=== PATIENT | male | born 1975 | race Caucasian/White ===

== ENCOUNTER 2018-12-17 16:34 | Emergency (ER) | payer BC ==
[~2018-12-17] VITALS: Ht 165.1 cm; Wt 80.0 kg
[2018-12-17 16:36] VITALS: Ht 165.1 cm; Wt 80.0 kg
[2018-12-17] MEDS ORDERED: SOD CHLORIDE 0.9% 1,000 ML IV STA (16:39)
[2018-12-17] MEDS ORDERED: KETOROLAC 30 MG INJ IV STA (16:39)
[2018-12-17] MEDS ORDERED: HYDROmorphONE 1 MG/ML SYG IV STA (16:39)
[2018-12-17] MEDS ORDERED: ONDANSETRON 4 MG INJ IV STA (16:39)
[2018-12-17] MEDS ORDERED: TAMS-14 PO (18:14)
[2018-12-17] MEDS ORDERED: IBUP-1542 PO (18:14)
[2018-12-17] MEDS ORDERED: HYDR-3980 PO (18:14)
[2018-12-17 19:27] VITALS: BP 122/77; PULSE 60; RESP 16
--- NOTE | 2018-12-17 19:30 | CONS ---
Assessment/Plan Assessment/Plan Hospital Course (Demo Recall) 43-year-old male presented to the emergency room with severe left flank pain associated with nausea. He underwent a CT scan of the abdomen and pelvis and that showed a 9 mm stone in the left upper ureter. The patient was given pain medications in the emergency room and at the present time he is appearing fairly comfortable and has no pain. He states that about 2 months ago he did have pain and that lasted about 10 minutes and then subsided. No prior history of kidney stones. On the exam at the present he has no tenderness over the flank area. I did review the CT scan with him and explained to him that he is not going to pass the stone without having pain and that the stone is 9 mm and the chances of passing the stone is small. Usually a stone of 5 mm or less have a better chance of passing it but one could always a pass a stone if he is to wait long enough and he the stone does not block the kidney to force as to remove it. I explained to him that he should go and see his medical doctor tomorrow and have him refer him to a urologist contracted with his medical group. Should he have severe pain where the oral pain medications do not control it he should go back to the emergency room. He will be given copies of his CT scan on a CD as well as the report and his lab results. Consultation Date/Type/Reason Admit Date/Time Date of Consultation: Dec 17, 2018 Type of Consult Urology Reason for Consultation Left upper ureteral stone Requesting Provider: MARCY SALCIDO MD Date/Time of Note DATE: 12/17/18 TIME: 19:22 Hx of Present Illness 43-year-old male presented to the emergency room with severe left flank pain associated with nausea. He underwent a CT scan of the abdomen and pelvis and that showed a 9 mm stone in the left upper ureter. The patient was given pain medications in the emergency room and at the present time he is appearing fairly comfortable and has no pain. He states that about 2 months ago he did have pain and that lasted about 10 minutes and then subsided. No prior history of kidney stones. Constitutional: no complaints Eyes: no complaints ENT: no complaints Respiratory: no complaints; No wheezing Cardiovascular: no complaints Gastrointestinal: no complaints, vomiting Genitourinary: flank pain (Left side) Musculoskeletal: no complaints Skin: no complaints Neurologic: no complaints Endocrine: no complaints Lymphatic: no complaints Psychological: no complaints Immunologic: no complaints Past Medical History Medical History: no pertinent history Home Meds Active Scripts Tamsulosin Hcl* (Flomax*) 0.4 Mg Cap.er.24h, 0.4 MG PO QPM, #30 CAP Prov:MARCY SALCIDO MD 12/17/18 Ibuprofen* (Motrin*) 600 Mg Tab, 600 MG PO Q6H PRN for PAIN AND OR ELEVATED T EMP, #30 TAB Prov:MARCY SALCIDO MD 12/17/18 Hydrocodone/Acetaminophen ([place] 10-325 Tablet) 1 Each Tablet, 1 TAB PO Q6H PRN for PAIN, #7 TAB Prov:MARCY SALCIDO MD 12/17/18 Allergies: Coded Allergies: No Known Allergy (Unverified , 12/17/18) Past Surgical History Past Surgical Hx: no surgical history Social History Alcohol Use: occasionally Smoking Status: Never smoker Drug Use: none Exam/Review of Systems Exam Vitals Vital Signs Date Temp Pulse Resp B/P (MAP) Pulse Ox O2 O2 Flow FiO2 Time Delivery Rate 12/17/18 98.0 56 18 142/80 99 Room Air 17:37 (100) Constitutional: alert Psych: no complaints Head: normocephalic Eyes: nl conjunctiva ENMT: nl external ears & nose Neck: supple, non-tender Respiratory: normal air movement; No wheezing Cardiovascular: No jugular venous distention (JVD) Gastrointestinal: soft Genitourinary - Male: nl penis, CVA tenderness (Left side), other (Right testis in inguinal area) Musculoskeletal: nl extremities to inspection Extremities: No calf tenderness Neurological: nl mental status Skin: nl turgor Results Result Diagram: 12/17/18 1654 12/17/18 1654 Results 24hrs Laboratory Tests Test 12/17/18 16:54 White Blood Count 8.3 Red Blood Count 5.44 Hemoglobin 15.4 Hematocrit 45.0 Mean Corpuscular Volume 82.7 Mean Corpuscular Hemoglobin 28.3 L Mean Corpuscular Hemoglobin Concent 34.2 Red Cell Distribution Width 12.1 Platelet Count 204 Mean Platelet Volume 11.7 H Immature Granulocytes % 1.600 H Neutrophils % 73.1 Lymphocytes % 17.5 Monocytes % 5.3 Eosinophils % 1.4 Basophils % 1.1 Nucleated Red Blood Cells % 0.0 Immature Granulocytes # 0.130 H Neutrophils # 6.1 Lymphocytes # 1.5 Monocytes # 0.4 Eosinophils # 0.1 Basophils # 0.1 Nucleated Red Blood Cells # 0.0 Urine Color YELLOW Urine Clarity CLEAR Urine pH 5.0 Urine Specific [place] 1.017 Urine Ketones NEGATIVE Urine Nitrite NEGATIVE Urine Bilirubin NEGATIVE Urine Urobilinogen NEGATIVE Urine Leukocyte Esterase NEGATIVE Urine Microscopic RBC 2 Urine Microscopic WBC 3 Urine Mucus FEW A Urine Hemoglobin 1+ H Urine Glucose NEGATIVE Urine Total Protein NEGATIVE Sodium Level 143 Potassium Level 4.2 Chloride Level 107 Carbon Dioxide Level 24 Anion Gap 12 Blood Urea Nitrogen 18 Creatinine 1.20 Est Glomerular Filtrat Rate mL/min > 60 Glucose Level 139 Calcium Level 10.5 H Total Bilirubin 0.6 Direct Bilirubin 0.00 Indirect Bilirubin 0.6 Aspartate Amino Transf (AST/SGOT) 37 Alanine Aminotransferase (ALT/SGPT) 47 Alkaline Phosphatase 70 Total Protein 8.3 H Albumin 4.7 Globulin 3.60 H Albumin/Globulin Ratio 1.30 [address] scan of the abdomen and pelvis: Mild left hydronephrosis with 9 mm calculus proximal left ureter. Fatty liver. Undescended right testicle. NOMI MCMAHAN MD Dec 17, 2018 19:30
--- NOTE | 2018-12-17 19:39 | ERD ---
ER Documentation Chief Complaint Chief Complaint left flank pain onset this am at 1100 HPI Patient is a 43-year-old male with no medical problems who presents with abdominal pain and flank pain. He said that he woke up this morning at 11 AM with sharp left-sided upper abdominal pain and flank pain. He has no history of kidney stone in the past. He has vomiting. He has had no treatment as of yet. The pain comes and goes. The patient has no fevers. Upon review of old medical records this is the patient's first visit to the emergency department. The patient does not remember the name of his primary doctor. ROS All systems reviewed and are negative except as per history of present illness. Medications Home Meds Active Scripts Tamsulosin Hcl* (Flomax*) 0.4 Mg Cap.er.24h, 0.4 MG PO QPM, #30 CAP Prov:MARCY SALCIDO MD 12/17/18 Ibuprofen* (Motrin*) 600 Mg Tab, 600 MG PO Q6H PRN for PAIN AND OR ELEVATED TEMP, #30 TAB Prov:MARCY SALCIDO MD 12/17/18 Hydrocodone/Acetaminophen ([place] 10-325 Tablet) 1 Each Tablet, 1 TAB PO Q6H PRN for PAIN, #7 TAB Prov:MARCY SALCIDO MD 12/17/18 Allergies Allergies: Coded Allergies: No Known Allergy (Unverified , 12/17/18) PMhx/Soc Medical and Surgical Hx: pt denies Medical Hx, pt denies Surgical Hx Hx Alcohol Use: No Hx Substance Use: No Hx Tobacco Use: No Smoking Status: Never smoker FmHx Family History: diabetes Physical Exam Vitals Vital Signs Date Temp Pulse Resp B/P (MAP) Pulse Ox O2 O2 Flow FiO2 Time Delivery Rate 12/17/18 98.6 60 16 122/77 99 Room Air 19:27 (92) 12/17/18 98.0 56 18 142/80 99 Room Air 17:37 (100) 12/17/18 98.0 58 18 142/91 99 Room Air 16:53 (108) 12/17/18 98.0 64 18 148/76 99 16:36 (100) Physical Exam Const: Moderate distress secondary to pain Head: Atraumatic Eyes: Normal Conjunctiva ENT: Normal External Ears, Nose and Mouth. Neck: Full range of motion. No meningismus. Resp: Clear to auscultation bilaterally Cardio: Regular rate and rhythm, no murmurs Abd: Soft, non tender, non distended. Normal bowel sounds Skin: No petechiae or rashes Back: No midline or flank tenderness Ext: No cyanosis, or edema Neur: Awake and alert Psych: Normal Mood and Affect Result Diagram: 12/17/18 1654 12/17/18 1654 Results 24 hrs Laboratory Tests Test 12/17/18 16:54 White Blood Count 8.3 10^3/ul Red Blood Count 5.44 10^6/ul Hemoglobin 15.4 g/dl Hematocrit 45.0 % Mean Corpuscular Volume 82.7 fl Mean Corpuscular Hemoglobin 28.3 pg Mean Corpuscular Hemoglobin Concent 34.2 g/dl Red Cell Distribution Width 12.1 % Platelet Count 204 10^3/UL Mean Platelet Volume 11.7 fl Immature Granulocytes % 1.600 % Neutrophils % 73.1 % Lymphocytes % 17.5 % Monocytes % 5.3 % Eosinophils % 1.4 % Basophils % 1.1 % Nucleated Red Blood Cells % 0.0 /100WBC Immature Granulocytes # 0.130 10^3/ul Neutrophils # 6.1 10^3/ul Lymphocytes # 1.5 10^3/ul Monocytes # 0.4 10^3/ul Eosinophils # 0.1 10^3/ul Basophils # 0.1 10^3/ul Nucleated Red Blood Cells # 0.0 10^3/ul Urine Color YELLOW Urine Clarity CLEAR Urine pH 5.0 Urine Specific [place] 1.017 Urine Ketones NEGATIVE mg/dL Urine Nitrite NEGATIVE mg/dL Urine Bilirubin NEGATIVE mg/dL Urine Urobilinogen NEGATIVE mg/dL Urine Leukocyte Esterase NEGATIVE Magda/ul Urine Microscopic RBC 2 /HPF Urine Microscopic WBC 3 /HPF Urine Mucus FEW /HPF Urine Hemoglobin 1+ mg/dL Urine Glucose NEGATIVE mg/dL Urine Total Protein NEGATIVE mg/dl Sodium Level 143 mmol/L Potassium Level 4.2 mmol/L Chloride Level 107 mmol/L Carbon Dioxide Level 24 mmol/L Anion Gap 12 Blood Urea Nitrogen 18 mg/dl Creatinine 1.20 mg/dl Est Glomerular Filtrat Rate mL/min > 60 mL/min Glucose Level 139 mg/dl Calcium Level 10.5 mg/dl Total Bilirubin 0.6 mg/dl Direct Bilirubin 0.00 mg/dl Indirect Bilirubin 0.6 mg/dl Aspartate Amino Transf (AST/SGOT) 37 IU/L Alanine Aminotransferase (ALT/SGPT) 47 IU/L Alkaline Phosphatase 70 IU/L Total Protein 8.3 g/dl Albumin 4.7 g/dl Globulin 3.60 g/dl Albumin/Globulin Ratio 1.30 Lipase 66 U/L Current Medications Medications Dose Sig/Seb Start Time Status Last (Trade) Ordered Route PRN Stop Time Admin Dose Reason Admin Sodium 1,000 ml @ Q1H STAT 12/17/18 DC 12/17/18 Chloride 1,000 mls/hr IV 16:39 16:49 12/17/18 17:38 1 mg ONCE STAT 12/17/18 DC 12/17/18 Hydromorphone IV 16:39 16:50 HCl 12/17/18 16:45 (Dilaudid) Ondansetron 4 mg ONCE STAT 12/17/18 DC 12/17/18 HCl (Zofran IV 16:39 16:50 Inj) 12/17/18 16:45 Ketorolac 30 mg ONCE STAT 12/17/18 DC 12/17/18 Tromethamine IV 16:39 16:50 (Toradol) 12/17/18 16:45 Procedures/MDM CT abdomen pelvis shows 9 mm proximal left-sided kidney stone per radiology. Patient is a 43-year-old male who presents with abdominal pain and flank pain. Laboratory studies were normal and urinalysis shows no infection. CT scan does show acute 9 mm kidney stone with hydronephrosis. I spoke with Dr. Dupont who came to the bedside and saw the patient. We feel outpatient management is appropriate this time. The patient will be discharged with a prescription for ibuprofen, Seibert, and Flomax. He will likely need lithotripsy given the size of the stone. The patient can return for any worsening symptoms. Departure Diagnosis: Primary Impression: Kidney stone Additional Impression: Flank pain Condition: Fair Patient Instructions: Kidney Stone W/ Colic Referrals: NOMI DUPONT MD Additional Instructions: SPECIALIST: YOU HAVE A MEDICAL CONDITION WHICH REQUIRES YOU TO SEE A SPECIALIST WITHIN THE NEXT 1-2 DAYS. PLEASE FOLLOW UP WITH YOUR PRIMARY PHYSICIAN FOR REFFERAL.IF YOU DO NOT HAVE A PRIMARY CARE PHYSICIAN AND/OR YOU CAN NOT AFFORD TO SEE A PHYSICIAN THE FOLLOWING RESOURCES HAVE BEEN SUPPLIED TO YOU. IT IS YOUR RESPONSIBILITY TO BE SEEN BY THE SPECIALIST MARCY SALCIDO MD Dec 17, 2018 19:39
== END 2018-12-17 19:28 | disposition home or self-care (01) ==
LOC: E/R 16:34
DX: N20.0 Calculus of kidney (principal)
CPT/HCPCS: 36415; 74176; 80053; 81001; 83690; 85025; 96374; 96375; 99285; J1170; J1885; J2405; J7030

== ENCOUNTER 2018-12-18 08:22 | Observation (INO) | payer BC ==
[~2018-12-18] VITALS: Ht 180.3 cm; Wt 93.3 kg
[~2018-12-18 08:22] MED LIST: HYDR-3980 PO; IBUP-1542 PO; TAMS-14 PO
[2018-12-18 08:27] VITALS: Ht 180.3 cm; Wt 93.3 kg
[2018-12-18] MEDS ORDERED: ONDANSETRON 4 MG INJ IV STA ×2 (08:40→11:40)
[2018-12-18] MEDS ORDERED: HYDROmorphONE 1 MG/ML SYG IV STA ×2 (08:40→11:40)
[2018-12-18] MEDS ORDERED: KETOROLAC 30 MG INJ IV STA (08:40)
[2018-12-18] MEDS ORDERED: SOD CHLORIDE 0.9% 1,000 ML IV STA (08:40)
--- NOTE | 2018-12-18 09:20 | ERD ---
ER Documentation Chief Complaint Chief Complaint LEFT FLANK PAIN, N/V, DX YESTERDAY FOR KIDNEY STONE HPI This is a 43-year-old male with no past medical history the presents to the emergency department complaining of severe left flank pain. The patient been seen and evaluated yesterday [facility] and diagnosed with nephrolithiasis. He had a 9 mm stone in the left proximal ureter. He had been seen and evaluated by the urologist while in the emergency department Dr. Dupont and after treatment with analgesic medication in the emergency department had been discharged for outpatient follow-up. However the patient indicates that he was unable to sleep throughout the night due to the severe pain. He states the pain is 10 out of 10 in intensity. Initially the pain began in the flank region and is now in the left lower quadrant. He states there is no alleviating or exacerbating factors to the pain. He has had no fevers or shaking chills. He denies any hematuria. ROS All systems reviewed and are negative except as per history of present illness. Medications Home Meds Discontinued Scripts Tamsulosin Hcl* (Flomax*) 0.4 Mg Cap.er.24h, 0.4 MG PO QPM, #30 CAP Prov:MARCY SALCIDO MD 12/17/18 Ibuprofen* (Motrin*) 600 Mg Tab, 600 MG PO Q6H PRN for PAIN AND OR ELEVATED TEMP, #30 TAB Prov:AMRCY SALCIDO MD 12/17/18 Hydrocodone/Acetaminophen ([facility] 10-325 Tablet) 1 Each Tablet, 1 TAB PO Q6H PRN for PAIN, #7 TAB Prov:MARCY SALCIDO MD 12/17/18 Allergies Allergies: Coded Allergies: No Known Allergy (Unverified , 12/17/18) PMhx/Soc Medical and Surgical Hx: pt denies Medical Hx, pt denies Surgical Hx Hx Alcohol Use: No Hx Substance Use: No Hx Tobacco Use: No Smoking Status: Never smoker Physical Exam Vitals Vital Signs Date Temp Pulse Resp B/P (MAP) Pulse Ox O2 O2 Flow FiO2 Time Delivery Rate 12/18/18 97.6 77 18 148/86 99 08:27 (106) Physical Exam Constitutional:Well-developed. Well-nourished. Patient appeared to be in a significant amount discomfort secondary to pain HEENT:Normocephalic. Atraumatic.Pupils were equal round reactive to light. Dry mucous membranes. Respiratory: Not using accessory muscles of respiration.Lungs were clear to auscultation bilaterally. No rhonchi. No rales. No wheezing. Cardiovascular: Regular rate regular rhythm.No murmurs. No rubs were appreciated.S1, S2 normal. Distal pulses are palpable 2+ bilaterally. GI: Abdomen was soft. Severe left CVA tenderness and tenderness in the left lower quadrant. Non Distended. No pulsatile abdominal masses or bruits. No rebound. No guarding. Bowel sounds were present and normal. Muscle skeletal: Full range of motion of both the upper and lower extremities bilaterally.Normal muscle tone.No assymetrical calf tenderness or swelling. Skin: Diaphoretic. No petechia, no purpura. No lesions on the palms or the soles of the feet. No maculopapular rash. NEURO: Patient was alert, awake, orientated x3.No facial droop. Gait observed and normal with no ataxia.Speech had regular rate and rhythm. No focal neurological deficits. Result Diagram: 12/18/18 0853 Results 24 hrs Laboratory Tests Test 12/18/18 08:53 White Blood Count 7.1 10^3/ul Red Blood Count 5.20 10^6/ul Hemoglobin 14.9 g/dl Hematocrit 43.5 % Mean Corpuscular Volume 83.7 fl Mean Corpuscular Hemoglobin 28.7 pg Mean Corpuscular Hemoglobin Concent 34.3 g/dl Red Cell Distribution Width 12.3 % Platelet Count 193 10^3/UL Mean Platelet Volume 11.8 fl Immature Granulocytes % 0.800 % Neutrophils % 73.0 % Lymphocytes % 16.3 % Monocytes % 6.5 % Eosinophils % 2.4 % Basophils % 1.0 % Nucleated Red Blood Cells % 0.0 /100WBC Immature Granulocytes # 0.060 10^3/ul Neutrophils # 5.2 10^3/ul Lymphocytes # 1.2 10^3/ul Monocytes # 0.5 10^3/ul Eosinophils # 0.2 10^3/ul Basophils # 0.1 10^3/ul Nucleated Red Blood Cells # 0.0 10^3/ul Current Medications Medications Dose Sig/Seb Start Time Status Last (Trade) Ordered Route PRN Stop Time Admin Dose Reason Admin Sodium 1,000 ml @ Q1H STAT 12/18/18 DC 12/18/18 Chloride 1,000 mls/hr IV 08:40 08:45 12/18/18 09:39 1 mg ONCE STAT 12/18/18 DC 12/18/18 Hydromorphone IV 08:40 08:46 HCl 12/18/18 08:41 (Dilaudid) Ondansetron 4 mg ONCE STAT 12/18/18 DC 12/18/18 HCl (Zofran IV 08:40 08:45 Inj) 12/18/18 08:41 Ketorolac 30 mg ONCE STAT 12/18/18 DC 12/18/18 Tromethamine IV 08:40 08:46 (Toradol) 12/18/18 08:41 Procedures/MDM This patient presented to the emergency department severe flank pain. I reviewed the CT scan performed yesterday and the patient had a 9 mm stone present in the left ureter. The patient was diaphoretic and in a significant pa in immediately had IV access was established. Ancillary laboratory work was performed. The patient was given intravenous Dilaudid Zofran and Toradol. He was also given a liter bolus of normal saline. Due to the severity of the patient's symptoms and size of his kidney stone I do feel the patient required admission to the hospital. I will reconsult the urologist Dr. Dupnot. He will be admitted to the hospitalist in serious condition for pain control and likely lithotripsy. Dr. Patiño kindly admit the patient. Departure Diagnosis: Primary Impression: Nephrolithiasis Condition: Serious JESSE RAY MD Dec 18, 2018 09:20
[2018-12-18] MEDS ORDERED: ACETAMINOPHEN 325 MG TAB PO PRN (10:30)
[2018-12-18] MEDS ORDERED: ONDANSETRON 4 MG INJ IV PRN ×2 (10:30→12:30)
[2018-12-18 12:10] VITALS: BP 136/65; PULSE 72; RESP 17
[2018-12-18] MEDS ORDERED: morphine 2 MG INJ IV PRN (12:30)
[2018-12-18] MEDS ORDERED: ZOLPIDEM 5 MG TAB PO PRN (12:30)
[2018-12-18] MEDS: SOD CHLORIDE 0.9% 1,000 ML IV SCH ×2 (12:42→19:39)
[2018-12-18] MEDS ORDERED: morphine 4 MG/ML VIAL IV STA (14:10)
--- NOTE | 2018-12-18 15:00 | HP ---
DATE OF ADMISSION: 12/18/2018 CHIEF COMPLAINT: Severe left flank pain. HISTORY OF PRESENT ILLNESS: A 43-year-old male with unremarkable past medical history who returns to the emergency room with complaint of severe left flank pain associated with nausea and vomiting. Pa in has now radiated to the left side of the abdomen. The patient was seen in the emergency room the day prior to admission. CAT scan of the abdomen and pelvis showed a 9 mm stone in the left upper ure ter. The patient was discharged home with pain medication, however, he continued to have severe pain . The patient denies hematuria. No fevers or chills. PAST MEDICAL HISTORY: None. ALLERGIES: NONE. SOCIAL HISTORY: Patient lives at home. He denies tobacco or illicit drug use. He drinks alcohol on social occasions. PHYSICAL EXAMINATION: GENERAL: Well-developed, well-nourished male who is in mild distress. VITAL SIGNS: Stable. He is afebrile. HEENT: Extraocular muscles intact. Pupils equal and reactive to light bilaterally. Sclerae are ani cteric. Oropharynx is clear and moist. NECK: Supple, no JVD, no carotid bruits. LUNGS: Clear to auscultation bilaterally. CARDIAC: Regular rate and rhythm. No murmurs, rubs or gallops. ABDOMEN: Soft, nontender, nondistended, normoactive bowel sounds. EXTREMITIES: No clubbing, cyanosis, or edema. BACK: No CVA tenderness. NEUROLOGICAL: Nonfocal. LABORATORY DATA: CBC was normal. Basic metabolic panel showed BUN of 22, creatinine of 1.22. KUB d id not show any stone. ASSESSMENT: A 43-year-old male with a 9 mm left ureteral stone causing severe left flank pain and le ft-sided abdominal pain. PLAN: Place in med/surg observation, IV fluid hydration, pain control, urinalysis. Urology consulta tion was requested. Dictated By: ASH LEIJA/LIVE Conf#: [id number] DID#: [id number]
[2018-12-18 15:25] VITALS: BP 130/72; PULSE 70; RESP 18
[2018-12-18] MEDS ORDERED: morphine 4 MG/ML VIAL IV PRN (15:30)
[2018-12-18] MEDS ORDERED: HYDROmorphONE 1 MG/ML SYG IV PRN (15:30)
--- NOTE | 2018-12-18 18:40 | CONS ---
Consult Date/Type/Reason Admit Date/Time Dec 18, 2018 at 10:12 Initial Consult Date December 17, 2018 Type of Consultation: Urology Reason for Consultation Left upper ureteral stone Requesting Provider: ASH ROMERO MD Date/Time of Note DATE: 12/18/18 TIME: 18:35 Subjective Presently the patient has severe left flank pain. Objective Vitals Vital Signs Date Temp Pulse Resp B/P (MAP) Pulse Ox O2 O2 Flow FiO2 Time Delivery Rate 12/18/18 98.7 70 18 130/72 99 15:25 (91) 12/18/18 Room Air 11:49 Exam Left flank tenderness. Results/Medications Result Diagram: 12/18/18 0853 12/18/18 0853 Results 24 hrs Laboratory Tests Test 12/18/18 08:53 12/18/18 15:34 12/18/18 16:08 White Blood Count 7.1 Red Blood Count 5.20 Hemoglobin 14.9 Hematocrit 43.5 Mean Corpuscular Volume 83.7 Mean Corpuscular Hemoglobin 28.7 L Mean Corpuscular Hemoglobin Concent 34.3 Red Cell Distribution Width 12.3 Platelet Count 193 Mean Platelet Volume 11.8 H Immature Granulocytes % 0.800 H Neutrophils % 73.0 Lymphocytes % 16.3 Monocytes % 6.5 Eosinophils % 2.4 Basophils % 1.0 Nucleated Red Blood Cells % 0.0 Immature Granulocytes # 0.060 H Neutrophils # 5.2 Lymphocytes # 1.2 Monocytes # 0.5 Eosinophils # 0.2 Basophils # 0.1 Nucleated Red Blood Cells # 0.0 Sodium Level 143 Potassium Level 3.8 Chloride Level 104 Carbon Dioxide Level 28 Anion Gap 11 Blood Urea Nitrogen 22 H Creatinine 1.22 Est Glomerular Filtrat Rate mL/min > 60 Glucose Level 118 Calcium Level 10.2 Total Bilirubin 0.8 Direct Bilirubin 0.00 Indirect Bilirubin 0.8 Aspartate Amino Transf (AST/SGOT) 41 Alanine Aminotransferase (ALT/SGPT) 42 Alkaline Phosphatase 59 Total Protein 7.7 Albumin 4.5 Globulin 3.20 Albumin/Globulin Ratio 1.40 Urine Color YELLOW Urine Clarity CLEAR Urine pH 6.0 Urine Specific [place] 1.019 Urine Ketones NEGATIVE Urine Nitrite NEGATIVE Urine Bilirubin NEGATIVE Urine Urobilinogen NEGATIVE Urine Leukocyte Esterase NEGATIVE Urine Microscopic RBC 114 H Urine Microscopic WBC 4 Urine Bacteria FEW A Urine Mucus FEW A Urine Hemoglobin 2+ H Urine Glucose NEGATIVE Urine Total Protein NEGATIVE Prothrombin Time 12.5 Prothrombin Time Ratio 1.0 INR International Normalized Ratio 0.92 Activated Partial Thromboplast Time 25.7 Home Meds Discontinued Scripts Tamsulosin Hcl* (Flomax*) 0.4 Mg Cap.er.24h, 0.4 MG PO QPM, #30 CAP Prov:MARCY SALCIDO MD 12/17/18 Ibuprofen* (Motrin*) 600 Mg Tab, 600 MG PO Q6H PRN for PAIN AND OR ELEVATED TEMP, #30 TAB Prov:MARCY SALCIDO MD 12/17/18 Hydrocodone/Acetaminophen ([place] 10-325 Tablet) 1 Each Tablet, 1 TAB PO Q6H PRN for PAIN, #7 TAB Prov:MARCY SALCIDO MD 12/17/18 Medications Current Medications Ondansetron HCl (Zofran Inj) 4 mg BRIDGE ORDER PRN IV NAUSEA/VOMITING; Start 12/18/18 at 10:30; Stop 12/19/18 at 10:29 Acetaminophen (Tylenol Tab) 650 mg ER BRIDGE PRN PO .MILD PAIN 1-3 OR TEMP; Start 12/18/18 at 10:30; Stop 12/19/18 at 10:29 Sodium Chloride 1,000 ml @ 150 mls/hr Q6H40M IV Last administered on 12/18/18at 12:42; Admin Dose 125 MLS/HR; Start 12/18/18 at 12:30 Zolpidem Tartrate (Ambien) 5 mg HS MAY REPEAT X 1 PRN PO INSOMNIA; Start 12/18/18 at 12:30 Ondansetron HCl (Zofran Inj) 4 mg Q4H PRN IV NAUSEA AND/OR VOMITING; Start 12/18/18 at 12:30 Hydromorphone HCl (Dilaudid) 1 mg Q3H PRN IV SEVERE PAIN LEVEL 7-10 Last administered on 12/18/18at 15:28; Admin Dose 1 MG; Start 12/18/18 at 15:30 Assessment/Plan Hospital Course (Demo Recall) 43-year-old male presented to the emergency room on 12/17/2018 with severe left flank pain associated with nausea. He underwent a CT scan of the abdomen and pelvis and that showed a 9 mm stone in the left upper ureter. The patient was given pain medications in the emergency room and he was after that fairly comfortable and had no pain. He states that about 2 months ago he did have pain and that lasted about 10 minutes and then subsided. No prior history of kidney stones. The patient was sent to home and he returned to the emergency room because of recurrent severe pain. He was therefore admitted. On the examination he still has severe left flank tenderness and left lower quadrant tenderness. KUB did not show the stone as a stone may be radiolucent or may be obscured by the bowel content. Impression: Left upper ureteral stone 9 mm in size. Plan: Cystoscopy, left retrograde pyelogram and insertion of left ureteral JJ stent in a.m. I have explained to the patient that we will put the JJ stent and that would help with drain the kidney and alleviate the pain. He however would need to follow-up with the urologist contracted with his [facility] to have the stone removed and the JJ stent removed later on. He did understand that and he wants to proceed in a.m. NOMI MCMAHAN MD Dec 18, 2018 18:40
[2018-12-18 20:25] VITALS: BP 138/74; PULSE 75; RESP 18
[2018-12-19] VITALS (18 sets, daily range): BP systolic 108–139; BP diastolic 57–75; PULSE 58–82; RESP 13–20
[2018-12-19] MEDS: SOD CHLORIDE 0.9% 1,000 ML IV SCH ×3 (01:50→15:24)
--- NOTE | 2018-12-19 11:25 | PDOCDIS ---
Discharge Instructions CONDITION [id number] Patient Condition: [id number] Good HOME CARE INSTRUCTIONS: [id number] Diet Instructions: [id number] Regular ACTIVITY: [id number] Activity Restrictions: [id number] No Restrictions FOLLOW UP/APPOINTMENTS Follow-up Plan pcp 1 week Urology 1 week ASH ROMERO MD Dec 19, 2018 11:25
--- NOTE | 2018-12-19 11:27 | PN ---
Date/Time of Note Date/Time of Note DATE: 12/19/18 TIME: 11:26 Subjective Doing quite well. Has not had any pain since early afternoon the day prior Objective Vitals Vital Signs Date Temp Pulse Resp B/P (MAP) Pulse Ox O2 O2 Flow FiO2 Time Delivery Rate 12/19/18 99.1 69 18 125/67 98 09:04 (86) 12/18/18 Room Air 11:49 Intake and Output 12/18/18 12/18/18 12/19/18 1515:00 23:00 07:00 IntakeIntake Total 1725 ml 1350 ml BalanceBalance 1725 ml 1350 ml Clear to auscultation bilaterally Regular rate and rhythm Soft nontender nondistended normoactive bowel sounds No flank tenderness No edema Nonfocal Results Result Diagram: 12/18/18 0853 12/18/18 0853 Medications Medications Current Medications Sodium Chloride 1,000 ml @ 150 mls/hr Q6H40M IV Last administered on 12/19/18at 09:35; Admin Dose 150 MLS/HR; Start 12/18/18 at 12:30 Zolpidem Tartrate (Ambien) 5 mg HS MAY REPEAT X 1 PRN PO INSOMNIA; Start 12/18/18 at 12:30 Ondansetron HCl (Zofran Inj) 4 mg Q4H PRN IV NAUSEA AND/OR VOMITING; Start 12/18/18 at 12:30 Hydromorphone HCl (Dilaudid) 1 mg Q3H PRN IV SEVERE PAIN LEVEL 7-10 Last administered on 12/18/18at 15:28; Admin Dose 1 MG; Start 12/18/18 at 15:30 VTE Prophylaxis Risk score (from Nsg)>0 risk: 1 SCD applied (from Nsg): Yes Lines/Catheters IV Catheter Type: Saline Lock Yoon in Place: No Assessment/Plan Assessment/Plan 43-year-old male with left ureteral stone measuring about 9 mm. There is a slight chance that patient may have passed a stone. Proceed with cystoscopy and ureteral stent placement Discharge planning following the procedure Patient will be referred to his PCP and urologist as outpatient Plan of care was discussed with the urologist and the patient ASH ROMERO MD Dec 19, 2018 11:27
[2018-12-19] MEDS ORDERED: IOHEXOL 300MG/ML 30 ML BTL ONE (11:34)
--- NOTE | 2018-12-19 12:27 | PREAC ---
Date/Time of Note Date/Time of Note DATE: 12/19/18 TIME: 12:25 Anesthesia Eval and Record Evaluation Time Pre-Procedure Interview DATE: 12/19/18 TIME: 12:25 Age 43 Sex male NPO: 8 hrs Preoperative diagnosis upper ureteral stone Planned procedure Cystoscopy, left retrograde pyelogram and insertion of left ureteral JJ stent Past Medical History Past Medical History: None Surgery & Anesthesia Issues No known issue (nose surgery) Meds Anticoagulation: No Beta Kenia within 24 hr: No Reason Beta Kenia not given: Pt. not on B-Kenia Discontinued Scripts Tamsulosin Hcl* (Flomax*) 0.4 Mg Cap.er.24h, 0.4 MG PO QPM, #30 CAP Prov:MARCY SALCIDO MD 12/17/18 Ibuprofen* (Motrin*) 600 Mg Tab, 600 MG PO Q6H PRN for PAIN AND OR ELEVATED TEMP, #30 TAB Prov:MARCY SALCIDO MD 12/17/18 Hydrocodone/Acetaminophen ([place] 10-325 Tablet) 1 Each Tablet, 1 TAB PO Q6H PRN for PAIN, #7 TAB Prov:MARCY SALCIDO MD 12/17/18 Current Medications Sodium Chloride 1,000 ml @ 150 mls/hr Q6H40M IV Last administered on 12/19/18at 09:35; Admin Dose 150 MLS/HR; Start 12/18/18 at 12:30 Zolpidem Tartrate (Ambien) 5 mg HS MAY REPEAT X 1 PRN PO INSOMNIA; Start 12/18/18 at 12:30 Ondansetron HCl (Zofran Inj) 4 mg Q4H PRN IV NAUSEA AND/OR VOMITING; Start 12/18/18 at 12:30 Hydromorphone HCl (Dilaudid) 1 mg Q3H PRN IV SEVERE PAIN LEVEL 7-10 Last administered on 12/18/18at 15:28; Admin Dose 1 MG; Start 12/18/18 at 15:30 Meds reviewed: Yes Allergies Coded Allergies: No Known Allergy (Unverified , 12/17/18) Allergies Reviewed: Yes Labs/Studies Labs Reviewed: Reviewed by anesthesiologist Result Diagram: 12/18/18 0853 12/18/18 0853 test: N/A Studies: ECG (nml) Pre-procedure Exam Last vitals Vital Signs Date Temp Pulse Resp B/P (MAP) Pulse Ox O2 O2 Flow FiO2 Time Delivery Rate 12/19/18 99.1 69 18 125/67 98 09:04 (86) 12/18/18 Room Air 11:49 Airway: Adequate mouth opening, Adequate thyromental dist Mallampati: Mallampati II Teeth: Normal Lung: Normal Heart: Normal ASA Physical Status ASA physical status: 1 Emergency: None Planned Anesthetic General/MAC: LMA Pre-operative Attestations Prior to commencing anesthesia and surgery, the patient was re-evaluated, there was verification of: *The patient's identity *The results of appropriate recent lab work and preoperative vital signs *The above evaluation not changing prior to induction *Anesthetic plan, risk benefits, alternative and complications discussed with patient/family; questions answered; patient/family understands, accepts and wishes to proceed. DEIB CONNRE Dec 19, 2018 12:26
--- NOTE | 2018-12-19 12:36 | HPN ---
Date/Time of Note Date/Time of Note DATE: 12/19/18 TIME: 12:32 Interval H&P Admission Note Pt. seen H&P reviewed: No system changes I did explain to the patient the procedure again in the presence of his son and to nurses. I explained to him that we will do cystoscopy and retrograde pyelogram and then inserted the JJ stent. I informed him that the JJ stent cannot stay there for a long time and he will need after the procedure to go and see his medical doctor who should refer him to the urologist contracted with [facility]. I answered all of his questions. I did draw a picture for him yesterday and showed him the stone in the ureter and the stent tween kidney and the bladder. He did not have any pain since yesterday and no stone was recovered when the urine is strained. There was a time that he did urinate without the nurses straining his urine. The stone is 9 mm in size and most likely he did not pass it and the reason he does not have pain now is that the stone is not obstructing. I also told him we could cancel the procedure if he does not feel comfortable going through it. He expressed he is willingness to go with the procedure. NOMI MCMAHAN MD Dec 19, 2018 12:36
[2018-12-19] MEDS ORDERED: SEVOFLURANE 15 MIN ONE (12:40)
[2018-12-19] MEDS ORDERED: ROCURONIUM 50 MG INJ ONE (12:40)
[2018-12-19] MEDS ORDERED: CEFAZOLIN 1 GM INJ ONE (12:45)
[2018-12-19] MEDS ORDERED: MIDAZOLAM 1 MG/ML 2 ML INJ ONE (12:45)
[2018-12-19] MEDS ORDERED: PROPOFOL 20 ML ONE (12:45)
[2018-12-19] MEDS ORDERED: ONDANSETRON 4 MG INJ ONE (12:55)
[2018-12-19] MEDS ORDERED: KETOROLAC 30 MG INJ ONE (12:56)
[2018-12-19] MEDS ORDERED: METOCLOPRAMIDE 10 MG INJ ONE (12:56)
[2018-12-19] MEDS ORDERED: DEXAMETHASONE 4 MG/ML 5 ML INJ ONE (12:56)
[2018-12-19] MEDS ORDERED: EPHEDrine 25 MG/5 ML SYG ONE (13:12)
[2018-12-19] MEDS ORDERED: NEOSTIGMINE 3 MG/3 ML SYRINGE ONE (13:32)
[2018-12-19] MEDS ORDERED: GLYCOPYRROLATE 0.4 MG INJ ONE (13:32)
--- NOTE | 2018-12-19 13:38 | PAC ---
Date/Time of Note Date/Time of Note DATE: 12/19/18 TIME: 13:38 Post-Anesthesia Notes Post-Anesthesia Note Last documented vital signs Vital Signs Date Temp Pulse Resp B/P (MAP) Pulse Ox O2 O2 Flow FiO2 Time Delivery Rate 12/19/18 99.3 69 18 125/67 98 face mask 13:34 (86) 12/18/18 Room Air 11:49 Activity: WNL Respiratory function: WNL Cardiovascular function: WNL Mental status: Baseline Pain reasonably controlled: Yes Hydration appropriate: Yes Nausea/Vomiting absent: Yes KAYLA DHALIWAL MD Dec 19, 2018 13:38
--- NOTE | 2018-12-19 13:42 | OPR ---
Date/Time of Note Date/Time of Note DATE: 12/19/18 TIME: 13:34 Operative Report Procedure Date: Dec 19, 2018 Preoperative Diagnosis Left upper ureteral stone Postoperative Diagnosis Left upper ureteral stone. The stone was at the upper edge of the sacroiliac joint Operation/Procedure Performed Cystoscopy, left retrograde pyelogram, insertion of left ureteral JJ stent Surgeon see signature line Warp Knitter interventional radiology tech Anesthesia Type: general Anesthesiologist: KAYLA DHALIWAL MD Estimated Blood Loss: none Transfusion none Specimen None Grafts/Implants none Tubes/Drains Left ureteral JJ stent 6 Jamaican by 24 cm long Complications none Pt Condition Post Procedure: stable Disposition: PACU Indications Left upper ureteral stone with obstruction Procedure Description Patient was brought to the operating room and given general anesthesia. Patient was positioned in the lithotomy position. Timeout was done and the patient was identified by his name, birthdate, the procedure and the side of the procedure. The patient was given 2 g of Ancef IV at the start of the procedure. The genital area was then prepped and draped in the usual sterile manner. #22 Jamaican cystoscope sheath was then introduced under direct vision through the penile urethra all the way to the bladder. The mid urethra showed a circular area of irritation. The bladder was mildly trabeculated. The left ureteral orifice was visualized. Spot films were taken between the bladder and the left kidney and on the plain film the stone could be seen over the sacroiliac joint area at the upper edge. I then used 8 Jamaican cone-tip ureteral catheter and did a retrograde pyelogram and that did show the stone again in the same location. Then I removed the cone-tip ureteral catheter and inserted a 5 Jamaican open ended ureteral catheter and through that I advanced the 0.035 zip wire under fluoroscopy into the left ureter. Once it reached the level of the stone it met some resistance. With manipulation I was able to bypass the stone and advance the wire up to the kidney. I did left pyelogram and visualized all the collecting system in the left kidney. I then removed the open ended and leaving the zip wire in place. Then on the zip wire I advanced a 6 Jamaican by 24 cm long JJ stent. I had its proximal end curling into the renal pelvis and the distal end curled into the bladder. The bladder was then emptied and the patient was transferred to the recovery room in a stable and satisfactory condition. NOMI MCMAHAN MD Dec 19, 2018 13:42
[2018-12-19] MEDS ORDERED: ONDANSETRON 4 MG INJ IV PRN (14:00)
[2018-12-19] MEDS ORDERED: OXYCODONE/ACETAMINOPHEN (5/325) TAB PO PRN (14:00)
[2018-12-19] MEDS ORDERED: EPHEDrine 25 MG/5 ML SYG IV PRN (14:00)
[2018-12-19] MEDS ORDERED: FENTAnyl 50 MCG/ML VIAL IV PRN ×3 (14:00)
[2018-12-19] MEDS ORDERED: METOCLOPRAMIDE 10 MG INJ IV PRN (14:00)
[2018-12-19] MEDS ORDERED: HYDROmorphONE 1 MG/5 ML IV SYRINGE IV PRN ×3 (14:00)
[2018-12-19] MEDS ORDERED: LABETALOL HCL 20MG INJ IV PRN (14:00)
== END 2018-12-19 17:00 | disposition home or self-care (01) ==
LOC: E/R 08:22 → INTOOBSV 10:12 → MS1 10:12
PROVIDERS: ADMIT Internal Medicine; ATTEND Internal Medicine
DX: N20.1 Calculus of ureter (principal)
CPT/HCPCS: 52332; 71045; 74018; 74430; 80053; 81001; 85025; 85610; 85730; 93005; 96374; 96375; 99285; C2617; J0690; J1100; J1170; J1885; J2250; J2270; J2405; J2710; J2765; J3010; J7030; Q9967; Z7500; Z7512; Z7610; G0378

== ENCOUNTER 2019-01-20 11:12 | Day surgery (SDC) | payer BC ==
[2019-01-20] VITALS (15 sets, daily range): BP systolic 113–141; BP diastolic 64–81; PULSE 54–76; RESP 11–23; Ht 180.3 cm; Wt 90.7 kg
[~2019-01-20] VITALS: Ht 180.3 cm; Wt 90.7 kg
--- NOTE | 2019-01-20 11:57 | PREAC ---
Date/Time of Note Date/Time of Note DATE: 01/20/19 TIME: 11:57 Anesthesia Eval and Record Evaluation Time Pre-Procedure Interview DATE: 01/20/19 TIME: 11:57 Age 43 Sex male NPO: 8 hrs Preoperative diagnosis Nephrolithiasis Planned procedure Cystoscopy, left ureteroscopy, left laser lithotripsy Past Medical History Past Medical History: Includes Renal: Other (Ureteral stones; SCr 1.22) Surgery & Anesthesia Issues No known issue Meds Anticoagulation: No Beta Kenia within 24 hr: No Reason Beta Kenia not given: Pt. not on B-Kenia No Active Prescriptions or Reported Meds Meds reviewed: Yes Allergies Coded Allergies: No Known Allergy (Unverified , 12/17/18) Allergies Reviewed: Yes Labs/Studies Labs Reviewed: Reviewed by anesthesiologist test: N/A Pre-procedure Exam Last vitals Huitron Airway: Adequate mouth opening, Adequate thyromental dist Mallampati: Mallampati II Teeth: Normal Lung: Normal Heart: Normal ASA Physical Status ASA physical status: 2 Emergency: None Planned Anesthetic General/MAC: ETT, LMA Planned Pain Management Parenteral pain med Pre-operative Attestations Prior to commencing anesthesia and surgery, the patient was re-evaluated, there was verification of: *The patient's identity *The results of appropriate recent lab work and preoperative vital signs *The above evaluation not changing prior to induction *Anesthetic plan, risk benefits, alternative and complications discussed with patient/family; questions answered; patient/family understands, accepts and wishes to proceed. MONTANA JORGE MD Jan 20, 2019 11:57
[2019-01-20] MEDS ORDERED: OXYCODONE/ACETAMINOPHEN (5/325) TAB PO PRN ×2 (12:00)
[2019-01-20] MEDS ORDERED: LABETALOL HCL 20MG INJ IV PRN (12:00)
[2019-01-20] MEDS ORDERED: ONDANSETRON 4 MG INJ IV PRN (12:00)
[2019-01-20] MEDS ORDERED: HYDROmorphONE 1 MG/5 ML IV SYRINGE IV PRN ×2 (12:00)
[2019-01-20] MEDS ORDERED: FENTAnyl 50 MCG/ML VIAL IV PRN (12:00)
[2019-01-20] MEDS ORDERED: FENTAnyl 50 MCG/ML VIAL ONE ×2 (12:48→13:51)
[2019-01-20] MEDS ORDERED: PROPOFOL 200 MG INJ ONE (12:48)
[2019-01-20] MEDS ORDERED: ROCURONIUM 50 MG INJ ONE (12:48)
[2019-01-20] MEDS ORDERED: NEOSTIGMINE 3 MG/3 ML SYRINGE ONE (12:48)
[2019-01-20] MEDS ORDERED: LIDOCAINE 2% (SDV) 5 ML INJ ONE (12:48)
[2019-01-20] MEDS ORDERED: MIDAZOLAM 1 MG/ML 2 ML INJ ONE (12:48)
[2019-01-20] MEDS ORDERED: GLYCOPYRROLATE 0.4 MG INJ ONE (12:48)
[2019-01-20] MEDS ORDERED: DEXAMETHASONE 4 MG/ML 5 ML INJ ONE (13:13)
[2019-01-20] MEDS ORDERED: ONDANSETRON 4 MG INJ ONE (13:13)
--- NOTE | 2019-01-20 14:11 | RADRPT ---
Vent Rate: 61 bpm RR Interval: 980 msec DC Interval: 152 msec QRS Duration: 97 msec QT Interval: 416 msec QTC Interval: 420 msec P-R-T [place]: 63 - 33 - 31 degrees Sinus rhythm...normal P axis, V-rate 50- 99 ST elev, probable normal early repol pattern...ST elevation, age<55 Electronically Signed By: Brian Ross
--- NOTE | 2019-01-20 14:24 | PAC ---
Date/Time of Note Date/Time of Note DATE: 01/20/19 TIME: 14:23 Post-Anesthesia Notes Post-Anesthesia Note Last documented vital signs BP 130/74 Sp)2 100% HR 74 RR 16 T 98.2 Vital Signs Date Temp Pulse Resp B/P (MAP) Pulse Ox O2 O2 Flow FiO2 Time Delivery Rate 01/20/19 98.2 14:15 01/20/19 74 16 133/74 100 Mask 8.0 14:12 (93) Activity: WNL Respiratory function: WNL Cardiovascular function: WNL Mental status: Baseline Pain reasonably controlled: Yes Hydration appropriate: Yes Nausea/Vomiting absent: Yes MONTANA JORGE MD Jan 20, 2019 14:24
--- NOTE | 2019-01-20 14:25 | OPR ---
Date/Time of Note Date/Time of Note DATE: 01/20/19 TIME: 14:18 Operative Report Procedure Date: Jan 20, 2019 Preoperative Diagnosis Left mid ureteral stone Postoperative Diagnosis Same Operation/Procedure Performed Cystoscopy, removal of old ureteral JJ stent, left ureteroscopy, laser lithotripsy and insertion of a new left ureteral JJ stent 6 Kyrgyz by 24 cm long Surgeon see signature line Corpsman Jin Lima Anesthesia Type: general Anesthesiologist: MONTANA JORGE MD Estimated Blood Loss: none Transfusion none Specimen Left ureteral stone fragments Grafts/Implants Left ureteral JJ stent 6 Kyrgyz by 24 cm long Complications none Pt Condition Post Procedure: stable Disposition: PACU Indications Mid left ureteral stone Procedure Description Patient was brought to the operating room and given general anesthesia. The patient was positioned in the lithotomy position. Timeout was done and the patient was identified by his name, birthdate, the procedure and the side of the procedure. Patient was given 2 g of Ancef IV at the start of the procedure. The genital area was prepped and draped in the usual sterile manner. #21 Kyrgyz cystoscope sheath was introduced under direct vision through the penile urethra all the way to the bladder. The distal end of the old JJ stent was grasped and removed under fluoroscopy. The cystoscope was reintroduced into the bladder and the left ureteral orifice was cannulated with a 5 Kyrgyz open ended ureteral catheter and a 0.035 zip wire was advanced through the open ended all the way up to the kidney. The open-ended was removed and reintroduced through the second working channel and another 0.035 sensor wire was advanced all the way up to the kidney. Then the cystoscope was removed leaving the [address]. The sensor wire was used as a safety wire and the other wire was used to advance on it the long rigid ureteroscope. The ureteroscope was advanced until the stone was visualized at the upper edge of the sacroiliac joint area. Then the zip wire was removed and a 200 m laser fiber was used and the stone was fragmented into multiple pieces. These were basketed one at the time and dropped into the bladder. Then I was able to advance the ureteroscope all the way up to the kidney and there were no additional stone or stone fragments seen. The ureteroscope was then removed and the cystoscope was reintroduced into the bladder and the stone fragments were drained out of the bladder. Then the cystoscope was reintroduced on the safety wire and a 24 cm long 6 Kyrgyz JJ stent was advanced on the sensor wire and had its proximal and curling into the kidney and the distal end curling into the bladder. The distal end is attached to a string that was taped to the penis with 2 pieces of Tegaderm. The patient tolerated the procedure well and was transferred to the recovery room in a stable and satisfactory condition. NOMI MCMAHAN MD Jan 20, 2019 14:25
[2019-01-20] MEDS ORDERED: HYDROCODONE/APAP (5/325) TAB PO PRN (14:30)
[2019-01-20] MEDS: FENTAnyl 50 MCG/ML VIAL IV PRN ×2 (14:41→15:02)
== END 2019-01-20 16:40 | disposition home or self-care (01) ==
LOC: SDS 11:12
PROVIDERS: ATTEND Urology
DX: N20.1 Calculus of ureter (principal)
CPT/HCPCS: 52356; 71045; 74018; 74430; 80053; 85025; 85610; 85730; 87086; 93005; C2617; J1100; J2250; J2405; J3010; Z7512; Z7610; 88300; J2710